=== PATIENT | male | born 1955 | race Two or more races ===

== ENCOUNTER 2019-02-28 06:39 | Day surgery (SDC) | payer OTHER ==
[~2019-02-28] VITALS: Ht 177.8 cm; Wt 77.1 kg
[2019-02-28 07:12] VITALS: BP 126/74
[2019-02-28 11:24] VITALS: BP 106/71
== END 2019-02-28 10:10 | disposition home or self-care (01) ==
LOC: DS 06:39 → OR 07:30 → GI 07:30 → DS 10:10
DX: K29.50 Unspecified chronic gastritis without bleeding (principal); K21.9 Gastro-esophageal reflux disease without esophagitis; E78.5 Hyperlipidemia, unspecified; E11.9 Type 2 diabetes mellitus without complications; E66.9 Obesity, unspecified; Z83.3 Family history of diabetes mellitus; Z98.890 Other specified postprocedural states; Z79.899 Other long term (current) drug therapy; Z79.82 Long term (current) use of aspirin; Z79.84 Long term (current) use of oral hypoglycemic drugs; Z79.01 Long term (current) use of anticoagulants; Z95.818 Presence of other cardiac implants and grafts
CPT/HCPCS: 43235; J1200; J1610; J2250; J2310; J3010; J3490